=== PATIENT | female | born 1970 | race Caucasian/White ===

== ENCOUNTER → 2022-12-18 | Day surgery (SDC) | payer OTHER | END | disposition home or self-care (01) | LOC: JMAMMO-SUR 11:14 | PROVIDERS: ATTEND Family Medicine | PROC: 07D63ZX Extraction of Left Axillary Lymphatic, Percutaneous Approach, Diagnostic (ICD-10-PCS; principal; 2022-12-18) | DX: D36.0 Benign neoplasm of lymph nodes (principal) | CPT/HCPCS: 19083; 76642-TC-RT; 87899; 88305-TC; A4648 ==